=== PATIENT | male | born 1965 | race Caucasian/White ===

== ENCOUNTER 2018-07-06 15:23 | Emergency (ER) | payer OTHER, MEDICAID, SELFPAY ==
[2018-07-06] VITALS (8 sets, daily range): BP systolic 108–145; BP diastolic 55–88; PULSE 93–121; RESP 10–22; TEMP 37.6; O2SAT 93–96; BMI 25.1
--- NOTE | 2018-07-06 15:55 | PC.NURSE ---
Pt is alert and oriented. Stated had stopped drinking for about 5 years and then 2 weeks ago started drinking about a 5th a day. Would like to stop drinking but feels, due to the amount he has been drinking daily. Pt was tearful at time and states I don't want to from withdraws.
--- NOTE | 2018-07-06 16:10 | ED.ALCOHOL ---
HPI - Alcohol General Chief Complaint: Toxicology Problem Stated Complaint: wants alcohol detox Time Seen by Provider: 07/06/18 16:10 Source: patient Mode of arrival: ambulatory Limitations: no limitations History of Present Illness HPI narrative: This is a 52-year-old male comes to the emergency department with complaint of alcohol abuse and requesting alcohol detox. Patient states that he did not drink for 5 years, about 2-3 weeks ago he started drinking heavily about a 5th every 36 hours. Patient states that he started to have withdrawals every time he tries to stop drinking. He states he gets shaky, he feels palpitations. He feels nauseated. He has not had any hallucinations. He is not having any symptoms currently but knows they are coming. He has not had seizures and states that he did not have for withdrawals in the past when he stops drinking 5 years ago. He states he has never required detox or been to 1. He is very anxious about going through withdrawal symptoms, he states he is not actively in the at this time but wants to avoid them and is very interested in a detox unit and treatment for his alcohol abuse. He does smoke tobacco, he denies any illicit. States he takes medication for blood pressure. 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 He denies any other cardiac history. Related Data Previous Rx's Medication Instructions Recorded metoprolol tartrate 50 mg tablet 50 mg PO BID #180 tab 12/22/17 gabapentin 300 mg capsule 300 mg PO DAILY 90 Days #30 cap 01/24/18 lisinopril 40 mg tablet 40 mg PO QDAY #90 tab 04/28/18 hydrocodone 7.5 mg-acetaminophen 1 tab PO TID PRN #90 tab 06/16/18 325 mg tablet lorazepam [Ativan] See Rx Instructions .ROUTE 07/06/18 .COMPLEX PRN #19 tab Allergies Allergy/AdvReac Type Severity Reaction Status Date / Time sertraline [From ZOLOFT] Allergy Unknown dizzy Verified 07/06/18 15:36 Review of Systems Review of Systems ROS Unobtainable: All systems reviewed & are unremarkable except as noted in HPI and below Psychiatric Reports anxiety PFSH Medical History AVN (avascular necrosis of bone) (Chronic ~2011) Hyperlipemia (Chronic) Hypertension (Chronic) Alcohol abuse (Resolved Unknown) Fractures (Resolved 1999) Surgical History History of total left hip arthroplasty (Resolved 04/2014) Hx of surgical procedure (Resolved 1999) Social History Smoking Status: Current every day smoker Social History (Updated 07/06/18 @ 16:27 by Rere Mckeon DO) Smoking Status: Current every day smoker alcohol intake: current substance use type: does not use Exam Narrative Exam Narrative: GENERAL: Alert and oriented x three, well-nourished, well-appearing male in mild distress. Patient appears anxious and becomes tearful intermittently during discussion. HEENT: Head normocephalic, atraumatic, EOMI, pupils reactive, face symmetric, moist mucous membranes NECK: Supple, full range of motion CARDIOVASCULAR: Slightly tachycardic but regular rhythm without murmurs, rubs or gallops. No JVD. RESPIRATORY: Breath sounds equal bilaterally, no wheezes rales or rhonchi. ABDOMEN: Soft, nontender. Normoactive bowel sounds all 4 quadrants. No guarding or rebound, rigidity, no mass : No CVA tenderness EXTREMITIES: Normal range of motion, no clubbing or edema. Neurovascularly intact NEUROLOGICAL: Cranial nerves II through XII grossly intact. Moving all extremities SKIN: Warm, dry, no petechiae, no rashes or lesions. Initial Vital Signs Initial Vital Signs: Vital Signs Temperature 99.6 F 07/06/18 15:36 Pulse Rate 121 H 07/06/18 15:36 Respiratory Rate 20 07/06/18 15:36 Blood Pressure 131/88 07/06/18 15:36 Pulse Oximetry 96 07/06/18 15:36 Course Orders Ordered: ED Orders 07/06/18 16:30 Complete Blood Count AUTO DIFF Stat Comprehensive Metabolic Panel Stat Ethanol (ETOH) Stat Hepatic (Liver) Panel Stat Lipase Stat Magnesium Stat 07/06/18 16:38 Urine Drug Screen, Rapid Stat Discontinued Medications Sodium Chloride (Normal Saline 0.9%) 1,000 mls @ 1,000 mls/hr IV BOLUS ONE Stop: 07/06/18 17:22 Last Infusion: 07/06/18 17:55 Dose: 0 mls/hr Admin: 07/06/18 16:49 Dose: 1,000 mls/hr Lorazepam (Ativan) 1 mg IV NOW ONE Stop: 07/06/18 16:24 Last Admin: 07/06/18 16:49 Dose: 1 mg Vital Signs - 8 hr 07/06/18 15:36 07/06/18 16:00 07/06/18 17:00 Temperature 99.6 F Pulse Rate 121 H 104 H 93 H Respiratory Rate 20 17 19 Blood Pressure 131/88 Blood Pressure [Right Arm] 117/62 129/56 L Pulse Oximetry 96 93 95 MDM - Alcohol Lab Data Attestation: I reviewed the patient's lab results. Result diagrams: 07/06/18 16:30 07/06/18 16:30 Labs: Lab Results 07/06/18 07/06/18 07/06/18 Range/Units 16:30 16:30 16:38 WBC 7.0 (4.5-11.0) X10^3/uL RBC 5.26 (4.5-5.9) X10^6/uL Hgb 15.6 (13.5-17.5) g/dL Hct 47.3 (41-53) % MCV 89.8 (80-100) fL MCH 29.7 (26-34) PG MCHC 33.1 (30-36) % RDW 15.0 H (11.6-14.8) % Plt Count 178 (150-400) X10^3/uL Neut % (Auto) 58.4 (50-75) % Lymph % (Auto) 31.0 (25-40) % [place] % (Auto) 8.2 (3-14) % Eos % (Auto) 1.9 L (2-4) % Baso % (Auto) 0.5 (0-2) % Neut # (Auto) 4100 (7266-9631) /uL Lymph # (Auto) 2200 (4124-7321) /uL [place] # (Auto) 600 (0-900) /uL Eos # (Auto) 100 (0-450) /uL Baso # (Auto) 0 (0-100) /uL Sodium 138 (137-145) mmol/L Potassium 3.7 (3.4-5.1) mmol/L Chloride 95 L (98-107) mmol/L Carbon Dioxide 23 (22-32) mmol/L BUN 10 (9-20) mg/dL Creatinine 0.80 (0.66-1.25) mg/dL Estimated GFR > 60.0 (>60) mL/min BUN/Creatinine Ratio 12.5 (6-22) Glucose 94 (70-100) mg/dL Calcium 8.7 (8.4-10.2) mg/dL Magnesium 2.1 (1.6-2.3) mg/dL Total Bilirubin 0.8 (0.2-1.3) mg/dL Conjugated Bilirubin 0.0 (0.0-0.3) md/dL Unconjugated Bilirubin 0.5 (0.0-1.1) mg/dL AST 125 H (17-59) IU/L ALT 54 (21-72) IU/L Alkaline Phosphatase 85 (38-126) U/L Total Protein 8.1 (6.3-8.2) g/dL Albumin 4.7 (3.5-5.0) g/dL Globulin 3.4 (1.7-4.1) g/dL Albumin/Globulin Ratio 1.4 (1.0-2.8) Lipase 177 (23-300) U/L Urine Opiates Screen Negative (Negative) Ur Oxycodone Screen Negative (Negative) Urine Methadone Screen Negative (Negative) Ur Barbiturates Screen Negative (Negative) U Tricyclic Antidepress Negative (Negative) Ur Phencyclidine Scrn Negative (Negative) Ur Amphetamines Screen Negative (Negative) U Methamphetamines Scrn Negative (Negative) Ur MDMA Scrn (Ecstasy) Negative (Negative) U Benzodiazepines Scrn Negative (Negative) Urine Cocaine Screen Negative (Negative) U Marijuana (THC) Screen Negative (Negative) Ethyl Alcohol 287 mg/dL Urine Dip Bedside Urine Glucose Negative Bedside Urine Bilirubin - Negative Bedside Urine Ketone +/- 5 Urine Specific [place] 1.015 Bedside Urine Occult Blood - Negative Bedside Urine pH 6.0 Bedside Urine Protein - Negative Bedside Urine Urobilinogen - Negative Bedside Urine Nitrite - Negative Bedside Urine Leukocytes - Negative Esterase MDM Narrative Medical decision making narrative: Patient's lab work shows a single LFT elevated at 125, otherwise no major unexpected lab abnormalities. Alcohol is 287. Discussed with patient there is possibly bed availability after 9:00 p.m. at [facility] in [place]. Patient is willing to wait. We did discuss that it is not guarantee that he will get get a bed or that 1 will become available. He expresses understanding and we did discuss that if this occurs that we could send him with oral prescription medication to help with his withdrawal symptoms and some resources. Patient is comfortable with both of these plans but would rather go to the detox unit as he feels he would do better with his resources that are available there. Patient's heart rate has been improving, he was sleeping when I came into the room. Signed out to Dr. Daly while waiting to contact Liana Hammer after 9pm. Discharge Plan Departure Clinical Impression: Desire for detoxification, Alcohol abuse Instructions: DI for Alcohol Abuse Prescriptions: New lorazepam [Ativan] 1 mg tablet See Rx Instructions .ROUTE .COMPLEX PRN (Reason: alcohol withdrawal) Qty: 19 RF: 0 No Action metoprolol tartrate 50 mg tablet 50 mg PO BID Qty: 180 RF: 3 gabapentin 300 mg capsule 300 mg PO DAILY 90 Days Qty: 30 RF: 2 lisinopril 40 mg tablet 40 mg PO QDAY Qty: 90 RF: 3 hydrocodone-acetaminophen 7.5-325 mg tablet 1 tab PO TID PRN (Reason: pain) Qty: 90 RF: 0 Referrals: Gretchen Ahumada DO [Primary Care Provider] -
--- NOTE | 2018-07-06 16:28 | ED_ITS ---
HPI - Alcohol General Chief Complaint: Toxicology Problem Stated Complaint: wants alcohol detox Time Seen by Provider: 07/06/18 16:10 Source: patient Mode of arrival: ambulatory Limitations: no limitations History of Present Illness HPI narrative: This is a 52-year-old male comes to the emergency department with complaint of alcohol abuse and requesting alcohol detox. Patient states that he did not drink for 5 years, about 2-3 weeks ago he started drinking heavily about a 5th every 36 hours. Patient states that he started to have withdrawals every time he tries to stop drinking. He states he gets shaky, he feels palpitations. He feels nauseated. He has not had any hallucinations. He is not having any s ymptoms currently but knows they are coming. He has not had seizures and states that he did not have for withdrawals in the past when he stops drinking 5 years ago. He states he has never required detox or been to 1. He is very anxious about going through withdrawal symptoms, he states he is not actively in the at this time but wants to avoid them and is very interested in a detox unit and treatment for his alcohol abuse. He does smoke tobacco, he denies any illicit. States he takes medication for blood pressure. 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 He denies any other cardiac history. Related Data Previous Rx's Medication Instructions Recorded metoprolol tartrate 50 mg tablet 50 mg PO BID #180 tab 12/22/17 gabapentin 300 mg capsule 300 mg PO DAILY 90 Days #30 cap 01/24/18 lisinopril 40 mg tablet 40 mg PO QDAY #90 tab 04/28/18 hydrocodone 7.5 mg-acetaminophen 1 tab PO TID PRN #90 tab 06/16/18 325 mg tablet lorazepam [Ativan] See Rx Instructions .ROUTE 07/06/18 .COMPLEX PRN #19 tab Allergies Allergy/AdvReac Type Severity Reaction Status Date / Time sertraline [From ZOLOFT] Allergy Unknown dizzy Verified 07/06/18 15:36 Review of Systems Review of Systems ROS Unobtainable: All systems reviewed & are unremarkable except as noted in HPI and below Psychiatric Reports anxiety PFSH Medical History AVN (avascular necrosis of bone) (Chronic ~2011) Hyperlipemia (Chronic) Hypertension (Chronic) Alcohol abuse (Resolved Unknown) Fractures (Resolved 1999) Surgical History History of total left hip arthroplasty (Resolved 04/2014) Hx of surgical procedure (Resolved 1999) Social History Smoking Status: Current every day smoker Social History (Updated 07/06/18 @ 16:27 by Rere Mckeon DO) Smoking Status: Current every day smoker alcohol intake: current substance use type: does not use Exam Narrative Exam Narrative: GENERAL: Alert and oriented x three, well-nourished, well- appearing male in mild distress. Patient appears anxious and becomes tearful intermittently during discussion. HEENT: Head normocephalic, atraumatic, EOMI, pupils reactive, face symmetric, moist mucous membranes NECK: Supple, full range of motion CARDIOVASCULAR: Slightly tachycardic but regular rhythm without murmurs, rubs or gallops. No JVD. RESPIRATORY: Breath sounds equal bilaterally, no wheezes rales or rhonchi. ABDOMEN: Soft, nontender. Normoactive bowel sounds all 4 quadrants. No guarding or rebound, rigidity, no mass : No CVA tenderness EXTREMITIES: Normal range of motion, no clubbing or edema. Neurovascularly intact NEUROLOGICAL: Cranial nerves II through XII grossly intact. Moving all extremities SKIN: Warm, dry, no petechiae, no rashes or lesions. Initial Vital Signs Initial Vital Signs: Vital Signs Temperature 99.6 F 07/06/18 15:36 Pulse Rate 121 H 07/06/18 15:36 Respiratory Rate 20 07/06/18 15:36 Blood Pressure 131/88 07/06/18 15:36 Pulse Oximetry 96 07/06/18 15:36 Course Orders Ordered: ED Orders 07/06/18 16:30 Complete Blood Count AUTO DIFF Stat Comprehensive Metabolic Panel Stat Ethanol (ETOH) Stat Hepatic (Liver) Panel Stat Lipase Stat Magnesium Stat 07/06/18 16:38 Urine Drug Screen, Rapid Stat Discontinued Medications Sodium Chloride (Normal Saline 0.9%) 1,000 mls @ 1,000 mls/hr IV BOLUS ONE Stop: 07/06/18 17:22 Last Infusion: 07/06/18 17:55 Dose: 0 mls/hr Admin: 07/06/18 16:49 Dose: 1,000 mls/hr Lorazepam (Ativan) 1 mg IV NOW ONE Stop: 07/06/18 16:24 Last Admin: 07/06/18 16:49 Dose: 1 mg Vital Signs - 8 hr 07/06/18 15:36 07/06/18 16:00 07/06/18 17:00 Temperature 99.6 F Pulse Rate 121 H 104 H 93 H Respiratory Rate 20 17 19 Blood Pressure 131/88 Blood Pressure [Right Arm] 117/62 129/56 L Pulse Oximetry 96 93 95 MDM - Alcohol Lab Data Attestation: I reviewed the patient's lab results. Result diagrams: 07/06/18 16:30 07/06/18 16:30 Labs: Lab Results 07/06/18 07/06/18 07/06/18 Range/Units 16:30 16:30 16:38 WBC 7.0 (4.5-11.0) X10^3/uL RBC 5.26 (4.5-5.9) X10^6/uL Hgb 15.6 (13.5-17.5) g/dL Hct 47.3 (41-53) % MCV 89.8 (80-100) fL MCH 29.7 (26-34) PG MCHC 33.1 (30-36) % RDW 15.0 H (11.6-14.8) % Plt Count 178 (150-400) X10^3/uL Neut % (Auto) 58.4 (50-75) % Lymph % (Auto) 31.0 (25-40) % [place] % (Auto) 8.2 (3-14) % Eos % (Auto) 1.9 L (2-4) % Baso % (Auto) 0.5 (0-2) % Neut # (Auto) 4100 (8914-0555) /uL Lymph # (Auto) 2200 (2911-2677) /uL [place] # (Auto) 600 (0-900) /uL Eos # (Auto) 100 (0-450) /uL Baso # (Auto) 0 (0-100) /uL Sodium 138 (137-145) mmol/L Potassium 3.7 (3.4-5.1) mmol/L Chloride 95 L (98-107) mmol/L Carbon Dioxide 23 (22-32) mmol/L BUN 10 (9-20) mg/dL Creatinine 0.80 (0.66-1.25) mg/dL Estimated GFR > 60.0 (>60) mL/min BUN/Creatinine Ratio 12.5 (6-22) Glucose 94 (70-100) mg/dL Calcium 8.7 (8.4-10.2) mg/dL Magnesium 2.1 (1.6-2.3) mg/dL Total Bilirubin 0.8 (0.2-1.3) mg/dL Conjugated Bilirubin 0.0 (0.0-0.3) md/dL Unconjugated Bilirubin 0.5 (0.0-1.1) mg/dL AST 125 H (17-59) IU/L ALT 54 (21-72) IU/L Alkaline Phosphatase 85 (38-126) U/L Total Protein 8.1 (6.3-8.2) g/dL Albumin 4.7 (3.5-5.0) g/dL Globulin 3.4 (1.7-4.1) g/dL Albumin/Globulin Ratio 1.4 (1.0-2.8) Lipase 177 (23-300) U/L Urine Opiates Screen Negative (Negative) Ur Oxycodone Screen Negative (Negative) Urine Methadone Screen Negative (Negative) Ur Barbiturates Screen Negative (Negative) U Tricyclic Antidepress Negative (Negative) Ur Phencyclidine Scrn Negative (Negative) Ur Amphetamines Screen Negative (Negative) U Methamphetamines Scrn Negative (Negative) Ur MDMA Scrn (Ecstasy) Negative (Negative) U Benzodiazepines Scrn Negative (Negative) Urine Cocaine Screen Negative (Negative) U Marijuana (THC) Screen Negative (Negative) Ethyl Alcohol 287 mg/dL Urine Dip Bedside Urine Glucose Negative Bedside Urine Bilirubin - Negative Bedside Urine Ketone +/- 5 Urine Specific [place] 1.015 Bedside Urine Occult Blood - Negative Bedside Urine pH 6.0 Bedside Urine Protein - Negative Bedside Urine Urobilinogen - Negative Bedside Urine Nitrite - Negative Bedside Urine Leukocytes - Negative Esterase MDM Narrative Medical decision making narrative: Patient's lab work shows a single LFT elevat ed at 125, otherwise no major unexpected lab abnormalities. Alcohol is 287. Discussed with patient there is possibly bed availability after 9:00 p.m. at [facility] in [place]. Patient is willing to wait. We did discuss that it is not guarantee that he will get get a bed or that 1 will become available. He expresses understanding and we did discuss that if this occurs that we could send him with oral prescription medication to help with his withdrawal symptoms and some resources. Patient is comfortable with both of these plans but would rather go to the detox unit as he feels he would do better with his resources that are available there. Patient's heart rate has been improving, he was sleeping when I came into the room. Signed out to Dr. Daly while waiting to contact Liana Hammer after 9pm. Discharge Plan Departure Clinical Impression: Desire for detoxification, Alcohol abuse Instructions: DI for Alcohol Abuse Prescriptions: New lorazepam [Ativan] 1 mg tablet See Rx Instructions .ROUTE .COMPLEX PRN (Reason: alcohol withdrawal) Qty: 19 RF: 0 No Action metoprolol tartrate 50 mg tablet 50 mg PO BID Qty: 180 RF: 3 gabapentin 300 mg capsule 300 mg PO DAILY 90 Days Qty: 30 RF: 2 lisinopril 40 mg tablet 40 mg PO QDAY Qty: 90 RF: 3 hydrocodone-acetaminophen 7.5-325 mg tablet 1 tab PO TID PRN (Reason: pain) Qty: 90 RF: 0 Referrals: Gretchen Ahumada DO [Primary Care Provider] -
[2018-07-06 16:37] LABS: Add Manual Diff / Slide Review NO; Basophils Absolute Auto 0 /uL (0-100); Basophils Percent Auto 0.5 % (0-2); Eosinophils Absolute Auto 100 /uL (0-450); Eosinophils Percent Auto 1.9 % (2-4); Hematocrit 47.3 % (41-53); Hemoglobin 15.6 g/dL (13.5-17.5); Lymphocytes Absolute Auto 2200 /uL (1100-4500); Mean Corpuscular HGB Conc 33.1 % (30-36); Mean Corpuscular Hemoglobin 29.7 PG (26-34); Mean Corpuscular Volume 89.8 fL (80-100); Monocytes Absolute Auto 600 /uL (0-900); Monocytes Percent Auto 8.2 % (3-14); Neutrophils Absolute Auto 4100 /uL (1500-7000); Neutrophils Percent Auto 58.4 % (50-75); Platelet Count 178 X10^3/uL (150-400); Red Blood Cell Count 5.26 X10^6/uL (4.5-5.9)
[2018-07-06 16:49] LABS: Alanine Aminotransferase 54 IU/L (21-72); Albumin 4.7 g/dL (3.5-5.0); Albumin Globulin Ratio 1.4 (1.0-2.8); Alkaline Phosphatase 85 U/L (38-126); Aspartate Aminotransferase 125 IU/L (17-59); BUN Creatinine Ratio 12.5 (6-22); Bilirubin Total 0.8 mg/dL (0.2-1.3); Bilirubin Unconjugated 0.5 mg/dL (0.0-1.1); Blood Urea Nitrogen 10 mg/dL (9-20); Calcium 8.7 mg/dL (8.4-10.2); Carbon Dioxide 23 mmol/L (22-32); Chloride 95 mmol/L (98-107); Estimated Glomerular Filt Rate > 60.0 mL/min (>60); Ethanol (ETOH) 287 mg/dL; Globulin 3.4 g/dL (1.7-4.1); Glucose 94 mg/dL (70-100); HEMOLYSIS 18 (0-50); Lipase 177 U/L (23-300); Magnesium 2.1 mg/dL (1.6-2.3); Potassium 3.7 mmol/L (3.4-5.1); Sodium 138 mmol/L (137-145); Total Protein 8.1 g/dL (6.3-8.2)
[2018-07-06] MEDS: SODIUM CHLORIDE 0.9% 1,000 ML 1000 ML IV (16:49)
[2018-07-06] MEDS: LORazepam 2 MG/ML INJ 1 MG IV ×2 (16:49→23:01)
[2018-07-06 17:03] LABS: Urine Amphetamines Negative (Negative); Urine Barbiturates Negative (Negative); Urine Benzodiazepines Negative (Negative); Urine Cocaine Negative (Negative); Urine MDMA Negative (Negative); Urine Methadone Negative (Negative); Urine Methamphetamines Negative (Negative); Urine Morphine/Opi cutoff 2000 Negative (Negative); Urine Oxycodone Negative (Negative); Urine Phencyclidine Negative (Negative); Urine Tetrahydrocannabinol Negative (Negative); Urine Tricyclic Antidepressant Negative (Negative)
[2018-07-06 19:37] LABS: Ethanol (ETOH) 221 mg/dL
[2018-07-06] MEDS: ONDANSETRON 4 MG/2 ML INJ IV (20:07)
[2018-07-06] MEDS: LORazepam 2 MG/ML INJ 0.5 MG IV (20:07)
--- NOTE | 2018-07-06 21:54 | PC.NURSE ---
Called [facility] center. Had Patient speak with them for intake. Was finally accepted for intake at 0620.
== END 2018-07-06 23:10 | disposition home or self-care (01) ==
PROVIDERS: Emergency Medicine; Emergency Provider Emergency Medicine; PCP Family Medicine
DX: F10.10 Alcohol abuse, uncomplicated (principal); Y90.8 Blood alcohol level of 240 mg/100 ml or more
CPT/HCPCS: 36415; 36591; 80053; 80076; 80305; 80320; 81003; 83690; 83735; 85025; 96361; 96374; 96375; 96376; 99284; J2060; J2405

== ENCOUNTER → 2019-03-07 12:08 | Outpatient (CLI) | payer OTHER, MEDICAID, SELFPAY ==
--- NOTE | 2019-03-07 12:12 | DI.RAD.S_ITS ---
PROCEDURE: XR KNEE RT 3V INDICATIONS: knee pain, injury TECHNIQUE: 3 views of the knee were acquired. COMPARISON: None. FINDINGS: Bones: No fractures or dislocations. No suspicious bony lesions. Soft tissues: Large joint effusion. No suspicious soft tissue calcifications. IMPRESSION: Large joint effusion If the patient's pain or other symptoms persist, consider further evaluation with MRI Dictated by: Evans Vickers M.D. on 03/07/2019 at 15:33 Approved by: Evans Vickers M.D. on 03/07/2019 at 15:34
== END ==
PROVIDERS: PCP Student in an Organized Health Care Education/Training Program; Visit Provider Student in an Organized Health Care Education/Training Program
DX: S86.911A Strain of unspecified muscle(s) and tendon(s) at lower leg level, right leg, initial encounter (principal); M25.561 Pain in right knee; M25.461 Effusion, right knee; X58.XXXA Exposure to other specified factors, initial encounter
CPT/HCPCS: 73562

== ENCOUNTER → 2019-03-20 10:55 | Outpatient (CLI) | payer OTHER, MEDICAID, SELFPAY ==
--- NOTE | 2019-03-20 10:56 | DI.MRI.S_ITS ---
PROCEDURE: MR KNEE RT WO CON INDICATIONS: Knee injury - right TECHNIQUE: Noncontrast sagittal PD fast spin echo and T2 fast spin echo with fat saturation, sagittal 3-D FLASH with fat saturation; coronal T1 spin echo and PD fast spin echo with fat saturation, and axial PD fast spin echo with fat saturation through the knee. COMPARISON: [facility], CR, XR KNEE RT 3V, 03/07/2019, 12:07. FINDINGS: Image quality: Excellent. Menisci: The medial meniscus is intact. There is amorphous high signal intensity involving the free edge of the lateral meniscal body, demonstrating superior and inferior to the service extension, indicating degenerative tearing. Cruciate ligaments: The anterior and posterior cruciate ligaments appear intact. Medial structures: The medial collateral ligament appears intact. Visualized portions of the pes anserinus tendons appear normal. Moderate T2 signal elevation within the semimembranosus tendon at the humeral insertion site. No abnormal bursal fluid. Lateral structures: The lateral collateral ligament demonstrates mild T2 signal elevation at its femoral origin. He long and short heads of the biceps femoris tendon appear intact. The popliteus tendon appears normal. Iliotibial band appears normal. Anterior structures: The quadriceps and patellar tendons appear intact. Patellar alignment is normal. No femoral trochlear dysplasia or ventral trochlear prominence. No edema in the infrapatellar fat pad. Bones and cartilage: No displaced fracture. There is moderate ill-defined T2 signal elevation within the posterior weightbearing aspect of the medial tibial plateau. Mild diffuse articular cartilage loss overlies the weightbearing aspects of the medial femoral condyle and medial tibial plateau. Moderate to cartilage loss overlies the lateral patellar facet. Joint space: There is a small knee joint effusion and a small Angulo's cyst. Normal appearing synovial plicae are incidentally noted. IMPRESSION: 1. Tricompartmental osteoarthritis with associated articular cartilage loss. 2. Degenerative tearing of the free edge of the lateral meniscal body. 3. Low-grade partial-thickness lateral collateral ligament tear. 4. Contusion within the medial tibial plateau posteriorly. 5. Knee joint effusion and Angulo's cyst. 5. Moderate insertional tendinitis versus strain of the semimembranosus tendon at the tibial insertion site. Dictated by: Sanjiv Fischer M.D. on 03/20/2019 at 11:30 Approved by: Sanjiv Fischer M.D. on 03/20/2019 at 11:34
== END ==
PROVIDERS: Referring Provider Student in an Organized Health Care Education/Training Program; Visit Provider Student in an Organized Health Care Education/Training Program
DX: S80.01XA Contusion of right knee, initial encounter (principal); S83.421A Sprain of lateral collateral ligament of right knee, initial encounter; S83.281A Other tear of lateral meniscus, current injury, right knee, initial encounter; M25.461 Effusion, right knee; M12.561 Traumatic arthropathy, right knee; M71.21 Synovial cyst of popliteal space [Baker], right knee; Y09 Assault by unspecified means
CPT/HCPCS: 73721

== ENCOUNTER → 2019-09-01 11:06 | Outpatient (CLI) | payer OTHER, MEDICAID, SELFPAY ==
--- NOTE | 2019-09-01 11:11 | DI.RAD.S_ITS ---
PROCEDURE: XR ANKLE LT MIN 3V INDICATIONS: L lateral malleoluar pain TECHNIQUE: 3 views of the ankle were acquired. COMPARISON: None. FINDINGS: Bones: Postoperative changes are present involving the distal tibia related to an extensive open reduction and internal fixation procedure. A medially applied orthopedic plate is secured in place by multiple by cortical screws. There are also lag screws present. No residual fracture line is evident. No acute process is identified involving the distal tibia. However, there is an acute fracture evident involving the distal aspect of the fibular metaphysis that extends into the joint space. No widening of the ankle mortise is appreciated. Moderate degenerative changes of the hindfoot joints are not well characterized on this study. There is a plantar calcaneal spur Soft tissues: No tibiotalar joint effusion. Achilles tendon appears normal. IMPRESSION: . 1. Minimally displaced lateral malleolar fracture. 2. Healed distal tibia fracture, s/p ORIF. No new tibial fractures. 3. Moderate degenerative changes of the midfoot and hindfoot joints are not adequately characterized. Dictated by: Noah David M.D. on 09/01/2019 at 10:59 Approved by: Noah David M.D. on 09/01/2019 at 11:02
--- NOTE | 2019-09-01 11:11 | DI.RAD.S_ITS ---
PROCEDURE: XR HIP W PEL IF DONE LT 2V INDICATIONS: L hip pain, history of fall TECHNIQUE: 2 views of the hip were acquired. COMPARISON: None. FINDINGS: Bones: Postoperative changes related to a left hip arthroplasty are present. The metallic prosthetic components appear to be appropriately seated without a periprosthetic fracture or lucency evident. There is no dislocation. The remainder of the imaged osseous structures of the pelvis are intact. Mild degenerative changes of the right hip are present. However, the right hip joint is not well characterized. Soft tissues: No suspicious soft tissue calcifications or masses. IMPRESSION: Left hip arthroplasty. No fractures. Dictated by: Noah David M.D. on 09/01/2019 at 11:04 Approved by: Noah David M.D. on 09/01/2019 at 11:05
--- NOTE | 2019-09-01 11:11 | DI.RAD.S_ITS ---
PROCEDURE: XR KNEE LT 3V INDICATIONS: L lateral knee pain TECHNIQUE: 3 views of the knee were acquired. COMPARISON: [facility], , XR KNEE RT 3V, 03/07/2019, 12:07. FINDINGS: Bones: No fractures or dislocations. No suspicious bony lesions. Patella [place] is incidentally noted. Soft tissues: No joint effusion. No suspicious soft tissue calcifications. IMPRESSION: No acute osseous abnormality of the left knee. Dictated by: Noah David M.D. on 09/01/2019 at 11:05 Approved by: Noah David M.D. on 09/01/2019 at 11:06
--- NOTE | 2019-09-01 11:11 | DI.RAD.S_ITS ---
PROCEDURE: XR FOOT LT MIN 3V INDICATIONS: L distal foot pain TECHNIQUE: 3 views of the foot were acquired. COMPARISON: None. FINDINGS: Bones: There is an acute fracture evident involving the lateral malleolus without significant displacement. Extensive postoperative changes of the distal tibia are evident related to an open reduction internal fixation procedure of the healed fracture. There are [id number] degenerative changes of the midfoot and hindfoot joints. [id number] degenerative changes of the joints of the foot are present. The bone mineralization appears to be mildly decreased. Soft tissues: No tibiotalar joint effusion. Soft tissue swelling overlying the lateral malleolus is present. No unexpected radiopaque foreign bodies are identified. IMPRESSION: 1. Lateral malleolar fracture. No additional fractures. 2. Mild to moderate degenerative changes of the foot. Dictated by: Noah David M.D. on 09/01/2019 at 11:02 Approved by: Noah David M.D. on 09/01/2019 at 11:04
== END ==
PROVIDERS: Referring Provider Nurse Practitioner; Visit Provider Nurse Practitioner
DX: S82.62XA Displaced fracture of lateral malleolus of left fibula, initial encounter for closed fracture (principal); M25.572 Pain in left ankle and joints of left foot; M25.562 Pain in left knee; M25.552 Pain in left hip; W19.XXXA Unspecified fall, initial encounter; M77.32 Calcaneal spur, left foot; Z96.642 Presence of left artificial hip joint
CPT/HCPCS: 73502; 73562; 73610; 73630